=== PATIENT | male | born 1960 | race Caucasian/White ===

== ENCOUNTER 2018-01-04 16:18 | Emergency (ER) | payer OTHER ==
[~2018-01-04] VITALS: Ht 175.3 cm; Wt 144.2 kg
[~2018-01-04 16:18] MED LIST: ACETAMINOPHEN/H1 TAB PO; CEPHALEXIN500 MG PO; COZAAR 100MG T100 MG PO; DILTIAZEM HYDR240 M1 PO; DILTIAZEM240 M1 PO; DOCUSATE SODIU100 MG PO; FUROSEMIDE80 MG PO; IBU800 MG PO; LASIX80 MG PO; LEVEMIR FL300 UNITS/ SC; LEVEMIR100 U/ML; LOPRESSOR 25MG25 MG PO; LOSARTAN POTAS100 MG PO; METFORMIN1000 MG PO; METRONIDAZOLE500 MG PO; MOTRIN 600 MG600 MG PO; NOVOLIN L100 UNITS/; NOVOLOG 10300 UNITS/ SC; NOVOLOG FLEX100 U/ML SC; PRAVASTATIN SOD80 MG PO; TOPCARE ASPIRI325 MG PO; UNASYN 3000MG3000 M1 IV; VANCOMYCIN 11000 MG IV; VANCOMYCIN HC1000 MG IV; VITAMIN B121000 MC2 PO
[2018-01-04 17:41] VITALS: BP 143/71
--- NOTE | 2018-01-04 17:51 | ED UPPER/LOWER EXTREMITY COMPL ---
History of Present Illness General Chief Complaint: General Adult Stated Complaint: SENT BY MD FOR EVAL ? POS BLOOD CULTURES Source: patient Exam Limitations: no limitations Vital Signs & Intake/Output Vital Signs & Intake/Output Vital Signs Date Time Temp Pulse Resp B/P B/P Pulse O2 O2 Flow FiO2 Mean Ox Delivery Rate 01/04 1741 98.7 74 18 143/71 95 01/04 1623 97.2 86 15 129/64 91 Room Air Room Air Allergies Coded Allergies: SUAD Inhibitors (Severe, ANGIODEMA 01/04/18) MDX - Acetaminophen (From PERCOCET) (STOMACH UPSET 01/04/18) MDX - Oxycodone (From PERCOCET) (STOMACH UPSET 01/04/18) Reconcile Medications Aspirin (Aspirin EC) 325 MG TABLET.DR 1 TAB PO DAILY HEART HEALTH (Reported) Cyanocobalamin (Vitamin B12) 1,000 MCG TAB 1 TAB PO DAILY SUPPLEMENT ( Reported) DILTIAZEM HCL (Diltiazem 24HR Cd) 240 MG CAP.ER.24H 1 TAB PO BID BP (Reported ) Docusate Sodium 100 MG SGL 100 MG PO BID PRN CONSTIPATION Furosemide 80 MG TAB 1.5 TAB PO BID FLUID (Reported) Ibuprofen (Ibu) 800 MG TAB 1 TAB PO Q6P PRN PAIN SCALE 6-10 (Reported) Insulin Aspart, Recombinant (Novolog Flexpen) 100 UNIT/ML INSULN.PEN 0 SC TIDAC DIABETES (Reported) Sliding Scale 80-100 NO Change 101-125 5 units 126-150 8 units 151-175 11 units 176-200 15 units 201-250 18 units 251-300 23 units 301-350 28 units 351-400 33 units more than 400 38 units and call Insulin Detemir (Levemir Flexpen) 100 UNIT/ML (3 ML) INSULN.PEN 45 U SC QHS DIABETES (Reported) Losartan Potassium 100 MG TABLET 1 TAB PO DAILY BP (Reported) METFORMIN HCL (Metformin) 1,000 MG TABLET 1 TAB PO BID diabetes (Reported) Pravastatin Sodium 80 MG TABLET 0.5 TAB PO QHS CHOLESTEROL (Reported) Unasyn (Ampicillin-Sulbactam 3 Gm Vial) 3 GRAM VIAL 3 GM IV Q6 osteomyelitis Vancomycin HCl (Vancomycin 1 Gram (ER)) 1 GRAM VIAL 1.5 GM IV Q12 osteomyelitis Triage Note: PT SENT TO ED BY DR. VORA'S OFFICE FOR ?ELEVATED WBC COUNT S/P BLOOD WORK TODAY. PT IS BEING WORKED UP FOR L LEG ?CELLULITIS. DENIES FEVER/CHILLS. AFEBRILE IN TRIAGE. Triage Nurses Notes Reviewed? yes Onset: Abrupt Duration: day(s): (1), constant Timing: recent history Severity: moderate, severe Pain/Injury Location: Left: Thigh. HPI: 57-year-old male comes into the emergency room for further evaluation of infection on left leg. Patient reports that he was seeing his anesthesiologist attending and they noticed that his leg was red. They kathya blood work on him as well as blood cultures. His white blood cell count was apparently slightly high so they sent him to the hospital for further evaluation. He denies any fever chills body aches. He reports that they told him he had a temperature in the office but he has no fever here. He has a history of diabetes. He had an ultrasound of his leg today which was normal and showed no evidence of DVT he reports. Past History Travel History Traveled to [place] past 21 day No Medical History Any Pertinent Medical History? see below for history Cardiovascular: AFIB, hypertension, hyperlipidemia Endocrine: TYPE II DM History of MRSA: Yes History of VRE: No History of CDIFF: No Pneumonia Vaccine: 06/06/08 Influenza Vaccine: 01/08/13 Surgical History Surgical History: non-contributory Psychosocial History Who do you live with Spouse Services at Home None What is your primary language Kuwaiti Tobacco Use: Quit >30 days ago ETOH Use: denies use Illicit Drug Use: denies illicit drug use Family History Family History, If Any: FATHER (htn, dm, cad). Hx Contributory? No Review of Systems Review of Systems Constitutional: Reports: no symptoms. EENTM: Reports: no symptoms. Respiratory: Reports: no symptoms. Cardiovascular: Reports: no symptoms. Gastrointestinal/Abdominal: Reports: no symptoms. Genitourinary: Reports: no symptoms. Musculoskeletal: Reports: no symptoms. Skin: Reports: see HPI. Neurological/Psychological: Reports: no symptoms. Hematologic/Endocrine: Reports: no symptoms. Immunological: Reports: no symptoms. All Other Systems: Reviewed and Negative Physical Exam Physical Exam General Appearance: well developed/nourished, mild distress Head: atraumatic Eyes: Bilateral: normal appearance. Ears, Nose, Throat: normal ENT inspection, hearing grossly normal Neck: normal inspection Cardiovascular/Respiratory: no respiratory distress Back: normal inspection Leg Left: Erythema to left thigh, well-demarcated borders, large erythematous patch, warm to touch, extends from above the knee wrapping around thigh, does not extend into the groin area or testicles, foot appears unremarkable, previous amputations, no erythema, no open sores, Neurologic/Tendon: normal sensation, normal motor functions, normal tendon functions, responds to pain, no evidence tendon injury, no pulse deficit Skin: intact, normal color, warm/dry Progress Differential Diagnosis: cellulitis, contusion, DVT Plan of Care: 01/04/2018 5:59:01 PM Spoke with the administrative assistant receptionist on the phone from Dr. Dodge's office. Apparently the white blood cell count was around 11.1. Patient is not running a fever here. He clinically looks well. He is nontoxic-appearing. He had blood cultures done as an outpatient already today. He had a negative ultrasound. He has not been on antibiotics. He looks well. at this time shared decision making with the patient. Patient will be discharged and continue on oral Keflex and return for a wound check. He's only had one dose of the Keflex today. He was told to return in 2-3 days for a wound check. He was instructed that if he has any worsening of symptoms or return immediately. He understands and agrees with plan of care. Departure Departure Disposition: HOME OR SELF CARE Condition: Stable Clinical Impression Primary Impression: Cellulitis of left leg without foot Referrals: Jackie SULLIVAN,Chuck Goldstein (PCP/Family) Additional Instructions: Take Keflex that was prescribed. Return in 2-3 days for wound check. Return sooner if any fever vomiting spreading of redness or any other concerns worsening symptoms. Please go over all results of today's visit with your primary care doctor. Contact your primary care doctor to let them know you were here in the emergency room. There may be nonspecific findings which may not be related to your visit today here in the emergency room but may require further evaluation and chronic monitoring by your primary care doctor. If you had a laceration today the chance of foreign body always remains. You should follow-up with your primary care doctor for recheck in 3-5 days for a wound check. If you had an x-ray done there is a chance that a fracture could have been missed on initial read and you should follow-up with your primary care doctor for repeat x-rays if symptoms persist. If your blood pressure was elevated here in the emergency room please have rechecked by tom primary care doctor within the next 48. If you were prescribed a narcotic here in the emergency room or any type of controlled substances you're not allowed to drive while taking this medication or operate any type of heavy machinery. Narcotics can make you feel lightheaded dizziness nausea and can cause constipation. You may need to pickle maker a stool softener. Thank you for choosing [facility] emergency room. Please return to the emergency room immediately if you have any other concerns worsening of symptoms. Departure Forms: Customer Survey General Discharge Information
== END 2018-01-04 17:54 ==
LOC: ERH 16:18
DX: L03.116 Cellulitis of left lower limb (principal); I10 Essential (primary) hypertension; I48.91 Unspecified atrial fibrillation; E11.9 Type 2 diabetes mellitus without complications; Z79.4 Long term (current) use of insulin; Z79.82 Long term (current) use of aspirin; Z87.891 Personal history of nicotine dependence